=== PATIENT | male | born 1970 | race Caucasian/White ===

== ENCOUNTER 2017-02-22 08:46 | Emergency (ER) | payer BC ==
[~2017-02-22] VITALS: Ht 175.3 cm; Wt 86.0 kg
[2017-02-22 08:49] VITALS: TEMP 36.5; Ht 175.3 cm; Wt 86.0 kg
[2017-02-22] MEDS ORDERED: RANITIDINE HCL 150 MG TAB PO STA (09:12)
[2017-02-22] MEDS ORDERED: HYDR1CAP85 PO (09:13)
[2017-02-22 09:31] VITALS: BP 109/51; PULSE 69; O2SAT 96
--- NOTE | 2017-02-22 11:36 | EMERGENCY ROOM VISIT NOTE ---
History First contact with patient: 08:51 Chief Complaint: ALLERGIC REACTION Stated Complaint: ALLERGIC REACTION TO A BEE STING Nursing Triage Summary: c/o several bee sting on left hand and right arm yesterday c/o pain and swelling no hives or rash reported and no SOB History of Present Illness The patient is a 46 year old male who presents to the Emergency Room with complaints of redness, swelling and intense itching and areas where he was stung by yellow jackets yesterday afternoon. The patient reports that he drank a whole bottle of Benadryl without any significant relief. He has not noticed any lip/tongue/throat swelling, palpitations, shortness of breath or other significant symptoms. The patient rates his overall discomfort a 4 out of 10, denying any significant pain at the site of the bites. He denies any prior history of bee sting allergies. 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 Review of Systems 10 system review was performed and was negative except for pertinent positives and negatives as indicated in history of present illness Past Medical/Surgical History Medical Problems: (1) No significant past medical history Surgical Problems: (1) No history of previous surgery Family History Unremarkable Social History Smoking Status: Never Smoker Alcohol Use: occasionally Marital Status: Occupation Status: employed Current/Historical Medications Scheduled PRN Hydroxyzine Pamoate (Vistaril), 25-50 MG PO Q6H PRN for Itching Physical Exam Vital Signs Date Time Temp Pulse Resp B/P (MAP) Pulse Ox O2 Delivery O2 Flow Rate FiO2 02/22/17 09:31 69 109/51 96 02/22/17 08:49 36.5 80 18 108/58 96 Pain Rating (0-10): 3.0 Physical Exam CONSTITUTIONAL: Healthy and well nourished. Alert and oriented X 3 with positive affect. Patient does not appear in any acute distress. HEENT: Normocephalic, atraumatic. Pupils equal, round and reactive. No facial edema or evidence for angioedema. NECK: Full active range of motion without discomfort. RESPIRATORY: Clear to auscultation bilaterally with no wheezing, crackles, rhonchi or stridor. CARDIOVASCULAR: Regular rate and rhythm with no murmurs, rubs or gallops. MUSCULOSKELETAL: Full range of motion of all joints without discomfort. INTEGUMENTARY: Examination shows areas of erythema on the forearms, consistent with bee stings and localized reaction. There are no vesicles, pustules, desquamation or other significant peripheral changes. NEUROLOGIC: No focal neurologic deficits noted. Medical Decision & Procedures Medications Administered Medications (Trade) Dose Ordered Sig/Shannan Route Start Time Stop Time Status Last Admin Dose Admin Ranitidine HCl (zANTac TAB) 150 mg ONE STAT PO 02/22/17 09:12 02/22/17 09:13 DC 02/22/17 09:12 150 MG ED Course Patient history and physical exam were performed. Nurse's notes were reviewed. Vital signs were reviewed and normal. The patient does not appear in any acute distress. Clinical exam is consistent with a localized reaction to bee stings. The patient was advised that the redness is not an infection. When he can take medicines that have drowsy side effects, he was encouraged to take Benadryl 50 mg every 6-8 hours. He may also take Zantac 150 mg every 12 hours, or other allergy medications for additional nonsedating relief. He was provided a prescription for hydroxyzine if needed for worsening itch, which also has a drowsy side effect. He was encouraged to keep cool and intermittently apply an ice pack to areas of swelling and itch. He was encouraged to follow-up with his PCP as needed for further management, returning to the emergency Department for uncontrollable symptoms, or if the redness changes in appearance with red streaks or developing fever. The patient was administered Zantac 150 mg prior to discharge, was happy with plan of care, and denied any pain at the time of discharge. Medical Decision Impression Primary Impression: Local reaction to bee sting Departure Information Dispostion Home / Self-Care Condition GOOD Prescriptions Hydroxyzine Pamoate (VISTARIL) 25 Mg Cap 25-50 MG PO Q6H Y for Itching, #20 CAP Prov: Dirk James PA 02/22/17 Referrals Rubens Waller MD (PCP) No Doctor, Assigned Forms HOME CARE DOCUMENTATION FORM, IMPORTANT VISIT INFORMATION Patient Instructions My [facility] [place] [employer] Additional Instructions Intermittently apply ice to areas of swelling and itch. For additional nonsedating relief, take Zantac 150 mg every 12 hours. For additional relief that has drowsy side effects, you may continue with Benadryl 50 mg every 6-8 hours. You have also been provided a prescription for hydroxyzine for additional relief. Return to emergency department for any developing lip/tongue/throat swelling, or palpitations, shortness of breath or rash spreading across other parts of the body. Follow-up with your family doctor as needed for any persistent symptoms. Problem Qualifiers Primary Impression: Local reaction to bee sting Encounter type: initial encounter Injury intent: accidental or unintentional Qualified Codes: T63.441A - Toxic effect of venom of bees, accidental (unintentional), initial encounter
== END 2017-02-22 09:32 | disposition home or self-care (01) ==
LOC: C.EDB 08:48
DX: T63.441A Toxic effect of venom of bees, accidental (unintentional), initial encounter (principal)